=== PATIENT | male | born 1955 | race Caucasian/White ===

== ENCOUNTER 2017-04-09 21:26 | Emergency (ER) | payer SELFPAY ==
[2017-04-09 22:20] VITALS: BP 121/80
[2017-04-09] MEDS ORDERED: Tetan/Diph/Pertus SYR(Tdap)* 0.5 ML SYR(BOOSTRIX) use SYR IM ONE (22:54)
[2017-04-09] MEDS ORDERED: Cephalexin CAP* 500 MG PO ONE ×2 (22:56)
[2017-04-09] MEDS ORDERED: ceFAZolin VIAL(*) 1 GM VIAL IM ONE (23:17)
--- NOTE | 2017-04-10 00:41 | UC ---
Og Angeles Benjamin, scribed for Ginny Salazar MD on 04/09/17 at 2311 . Hand/Wrist HPI - HPI Summary HPI Summary: 61yo male presents with 2 puncture wounds from a steel wire with oil on it that went thru and thru his right hand tonight around 2030 at work. Pt was pushing through pins at work tonight when the injury happened. The wire was oiled and about 1/8 inch thick and about 2 feet long. Wire was going to be used to pin the chains, and was lubricated with oil. Last tetanus shot is unknown; pt states most likely more than 10 years ago. Puncture wounds are a little sore and stiff now, but full ROM still intact. Pt states the pain is subsided a bit over time. Pain is now 3/10. FHx of DM, CAD, and colon CA. - History Of Current Complaint Chief Complaint: UCUpperExtremity Stated Complaint: HAND INJURY Time Seen by Provider: 04/09/17 22:50 Hx Obtained From: Patient ?: No Mechanism Of Injury: pucture wound from an oiled copper wire while at work. Onset/Duration: Sudden Onset - at 8:30pm, Lasting Hours, Still Present Severity Initially: Moderate Severity Currently: Mild Pain Intensity: 3 Pain Scale Used: 0-10 Numeric Character Of Pain: Throbbing Aggravating Factor(s): Movement Alleviating: Nothing Associated Signs And Symptoms: Positive: Bruising - right dorsum of the hand Related History: Occupational Injury, Dominant Hand Right - Allergies/Home Medications Allergies/Adverse Reactions: Allergies Allergy/AdvReac Type Severity Reaction Status Date / Time Acetaminophen Allergy Intermediate Rash And Verified 04/09/17 22:21 [From NyQuil Nighttime Itching Cold/Flu Medicine] Aspirin Allergy Intermediate Rash And Verified 04/09/17 22:21 Itching Dextromethorphan Allergy Intermediate Rash And Verified 04/09/17 22:21 [From NyQuil Nighttime Itching Cold/Flu Medicine] Doxylamine Allergy Intermediate Rash And Verified 04/09/17 22:21 [From NyQuil Nighttime Itching Cold/Flu Medicine] Ethanol Allergy Intermediate Rash And Verified 04/09/17 22:21 [From NyQuil Nighttime Itching Cold/Flu Medicine] Ibuprofen Allergy Intermediate Rash And Verified 04/09/17 22:21 Itching Pseudoephedrine Allergy Intermediate Rash And Verified 04/09/17 22:21 [From [facility] Nighttime Itching Cold/Flu Medicine] PMH/Surg Hx/FS Hx/Imm Hx Previously Healthy: No - hepatitis as a child - Surgical History Surgical History: None - Family History Known Family History: Positive: Cardiac Disease, Diabetes, Other - colon CA - Social History Occupation: Employed Full-time Lives: With Family Alcohol Use: None Substance Use Type: None Smoking Status (MU): Heavy Every Day Tobacco Smoker Type: Cigarettes Length of Time of Smoking/Using Tobacco: 46 years Have You Smoked in the Last Year: Yes Review of Systems Constitutional: Negative Skin: Other - thru and thru puncture wounds on the back of the right hand and palmar surface with some redness and bruising. Eyes: Negative ENT: Negative Respiratory: Negative Cardiovascular: Negative Gastrointestinal: Negative Genitourinary: Negative Motor: Negative Neurovascular: Negative Musculoskeletal: Myalgia Neurological: Negative Psychological: Negative All Other Systems Reviewed And Are Negative: Yes Physical Exam Triage Information Reviewed: Yes Appearance: Well-Appearing, Well-Nourished, Pain Distress Vital Signs: Initial Vital Signs Temp 98.4 F 04/09/17 22:15 Pulse 89 04/09/17 22:15 Resp 12 04/09/17 22:15 BP 121/80 04/09/17 22:15 Pulse Ox 96 04/09/17 22:15 Vital Signs Reviewed: Yes Eyes: Positive: Conjunctiva Clear ENT: Positive: Normal ENT inspection, Hearing grossly normal. Negative: Muffled /hoarse voice Neck: Positive: Supple Respiratory: Positive: Lungs clear, Normal breath sounds, No respiratory distress, No accessory muscle use Cardiovascular: Positive: RRR, No Murmur, Pulses Normal Musculoskeletal: Positive: Strength Intact, ROM Intact, Other: - no bony tenderness of right hand Neurological: Positive: Alert, Muscle Tone Normal Psychological Exam: Normal Skin: Positive: Other - Puncture wound on the dorsum of the right hand at the base of the 4th and 5th Metacarpals. Bleeding is controlled, and there is a 5cm ecchymosis surrounding the wound. Full ROM still intact. At the ventral surface of the hand, there is a 0.5cm laceration at the right middle finger MCP. Bleeding is controlled. Minimal ecchymosis and redness. Re-Evaluation - Re-Evaluation First Eval Re-Evaluation Time: 23:20 - increased swelling dorsum of right hand after xray, ice applied. Change: Worse Second Eval Re-Evaluation Time: 00:25 - less swelling after ice, still good ROM, no red streaks, bandages and flory bandage applied. No adverse rxn to cefazolin. Change: Improved Hand/Wrist Course/Dx - Course Course Of Treatment: Reviewed medication lists and known allergies. 61yo male presents with thru and thru puncture wounds on the dorsum of his right hand and palmar surface from a 1/8th inch thick oiled copper wire tonight aroun 8:30pm at work. Tetanus shot is not UTD and was updated tonight with Tdap. Full ROM still intact, but the right hand is sore and stiff. The bleeding has been controlled and there is mild ecchymosis and redness surrounding the wound. Unofficial xray reading is no fracture, no FB. Wounds were extensively irrigated, and bandaged and an flory applied. IV Kefzol was given to initiate antibiotic therapy, and pt was given po cephalexin 500mg to start oral therapy in am. Dr. Salazar spoke with Dr. Quinones who will see pt in am. - Differential Dx/Diagnosis Differential Diagnosis/HQI/PQRI: Cellulitis, Fracture, Tenosynovitis Provider Diagnoses: Puncture wounds, right hand, through and through. Tdap tetanus update. Tobacco Abuse Disorder. - Physician Notifications Discussed Patient Care With: Roger Quinones - Ortho Consult Time Discussed With Above Provider: 23:25 Instructed by Provider To: Have Pt Call For Appt. - in am. Discharge - Discharge Plan Condition: Stable Disposition: HOME Prescriptions: Cephalexin CAP* [Keflex 500 CAP*] 500 mg PO QID #40 cap Patient Education Materials: Cephalexin (By mouth), Diphtheria/Acellular Pertussis/Tetanus Vaccine (By injection), Puncture Wound (ED) Forms: *Work Release Referrals: Roger Quinones MD [Medical Doctor] - 1 Day (Have definite follow up with Dr. Quinones on 04/10/17. Dr. Salazar has spoken to Dr. Quinones and he asked for you to call in the am to be seen 04/10/17. ) Favian Sullivan MD [Primary Care Provider] - Additional Instructions: Dr. Salazar gave you one gram of cefazolin IV and cephalexin 500mg orally to start the antibiotic therapy tonkamar to try to prevent infection in your puncture wounds. Be sure to take the cephalexin 500mg in the morning, and to fill the prescription and continue the cephalexin 500mg four times a day for ten days. Dr. Salazar talked to Dr. Joni bal. Be sure to see him in the am after talking to his office staff first thing in the morning. Dr. Salazar also updated your tetanus status tonkamar with a Tdap vaccine. That is good for 10 years. You will be off work until Dr. Quinones clears you for work. Go to the emergency room if you see a red streak, have a fever, or have any new or worsening symptoms. You may take tylenol as needed for pain. The documentation as recorded by the Og frankel Benjamin accurately reflects the service I personally performed and the decisions made by me, Ginny Salazar MD.
--- NOTE | 2017-04-10 08:20 | RAD ---
Indication: Hand injury. 2 views of the right hand demonstrates no fracture. No evidence of radiopaque foreign body is identified. IMPRESSION: No fracture of the hand is noted.
== END 2017-04-10 00:31 | disposition home or self-care (01) ==
LOC: UCEAST 21:26
DX: S61.411A Laceration without foreign body of right hand, initial encounter (principal); F17.210 Nicotine dependence, cigarettes, uncomplicated; W26.8XXA Contact with other sharp object(s), not elsewhere classified, initial encounter; Y92.89 Other specified places as the place of occurrence of the external cause
CPT/HCPCS: 90471; 90715; 96365; 96374; 99213; A9270-GY; G0463; J0690

== ENCOUNTER 2017-11-18 14:22 | Emergency (ER) | payer BC, OTHER ==
[2017-11-18 17:49] VITALS: BP 118/68
--- NOTE | 2017-11-18 17:56 | UC ---
Throat Pain/Nasal Arun HPI - HPI Summary HPI Summary: Pt presents with sinus pain/pressure/congestion and a dry cough for 5 days. He has been taking tylenol which does help his discomfort. Denies fever, chills, SOB, chest pain, abdominal pain, n/v/d/c, or body aches. - History of Current Complaint Chief Complaint: UCGeneralIllness Stated Complaint: CONGESTED,COUGH Time Seen by Provider: 11/18/17 17:55 Hx Obtained From: Patient Onset/Duration: Gradual Onset Severity: Moderate Pain Intensity: 7 Pain Scale Used: 0-10 Numeric Cough: Nonproductive - Allergies/Home Medications Allergies/Adverse Reactions: Allergies Allergy/AdvReac Type Severity Reaction Status Date / Time Aspirin Allergy Intermediate Rash And Verified 11/18/17 17:50 Itching Dextromethorphan Allergy Intermediate Rash And Verified 11/18/17 17:50 [From NyQuil Nighttime Itching Cold/Flu Medicine] Doxylamine Allergy Intermediate Rash And Verified 11/18/17 17:50 [From NyQuil Nighttime Itching Cold/Flu Medicine] Ethanol Allergy Intermediate Rash And Verified 11/18/17 17:50 [From NyQuil Nighttime Itching Cold/Flu Medicine] Ibuprofen Allergy Intermediate Rash And Verified 11/18/17 17:50 Itching Pseudoephedrine Allergy Intermediate Rash And Verified 11/18/17 17:50 [From NyQuil Nighttime Itching Cold/Flu Medicine] Penicillins Allergy rash after Verified 11/18/17 17:50 5+ days PMH/Surg Hx/FS Hx/Imm Hx Previously Healthy: Yes - Surgical History Surgical History: None Surgery Procedure, Year, and Place: vasectomy, lymph node removed on left axilla - Family History Known Family History: Positive: Cardiac Disease, Diabetes, Other - colon CA - Social History Lives: With Family Alcohol Use: None Substance Use Type: None Smoking Status (MU): Light Every Day Tobacco Smoker Type: Cigarettes Length of Time of Smoking/Using Tobacco: 46 years Have You Smoked in the Last Year: Yes Review of Systems Constitutional: Negative Skin: Negative Eyes: Negative ENT: Nasal Discharge, Sinus Congestion, Sinus Pain/Tenderness Respiratory: Cough Cardiovascular: Negative Gastrointestinal: Negative Neurological: Negative Psychological: Negative All Other Systems Reviewed And Are Negative: Yes Physical Exam Triage Information Reviewed: Yes Appearance: Well-Appearing, No Pain Distress, Well-Nourished Vital Signs: Initial Vital Signs Temp 100.6 F 11/18/17 17:44 Pulse 89 11/18/17 17:44 Resp 16 11/18/17 17:44 BP 118/68 11/18/17 17:44 Pulse Ox 99 11/18/17 17:44 Vital Signs Reviewed: Yes Eyes: Positive: Conjunctiva Clear. Negative: Conjunctiva Inflamed, Discharge ENT: Positive: Hearing grossly normal, Pharynx normal, Nasal congestion, Nasal drainage, TMs normal, Sinus tenderness, Uvula midline. Negative: Pharyngeal erythema, TM bulging, TM dull, TM red, Tonsillar swelling, Tonsillar exudate, Hoarse voice Neck: Positive: Supple, Nontender, No Lymphadenopathy Respiratory: Positive: Chest non-tender, Lungs clear, Normal breath sounds, No respiratory distress, No accessory muscle use Cardiovascular: Positive: RRR, No Murmur, Pulses Normal Neurological: Positive: Alert Psychological: Positive: Age Appropriate Behavior Skin: Negative: rashes Throat Pain/Nasal Course/Dx - Course Course Of Treatment: Sinusitis - says he can only take Keflex - Differential Dx/Diagnosis Provider Diagnoses: Sinusitis Discharge - Discharge Plan Condition: Stable Disposition: HOME Prescriptions: Cephalexin CAP* [Keflex CAP*] 500 mg PO BID #20 cap Patient Education Materials: Sinusitis (ED) Referrals: Favian Sullivan MD [Primary Care Provider] - Additional Instructions: If you develop a fever, shortness of breath, chest pain, new or worsening symptoms - please call your PCP or go to the ED.
== END 2017-11-18 18:12 | disposition home or self-care (01) ==
LOC: UCEAST 14:22
DX: J32.9 Chronic sinusitis, unspecified (principal); Z88.6 Allergy status to analgesic agent; Z88.0 Allergy status to penicillin; F17.210 Nicotine dependence, cigarettes, uncomplicated
CPT/HCPCS: 99212; G0463